=== PATIENT | female | born 1965 | race Caucasian/White ===

== ENCOUNTER 2024-07-27 12:55 | Day surgery (SDC) | payer BC ==
[2024-07-27] MEDS ORDERED: LIDOCAINE HCL 1% AMPUL 5 ML IJ ONE (12:56)
[2024-07-27] MEDS ORDERED: Decadron 4 MG INJ IV ONE (12:56)
[2024-07-27] MEDS ORDERED: Sodium Chloride 0.9(Preservative Free) 10 ML IJ ONE (12:56)
[2024-07-27] MEDS ORDERED: DIPRIVAN 200 MG/20 ML IV ONE (14:47)
--- NOTE | 2024-07-27 16:31 | XRAY ---
Indication: Left L5-S2 transforaminal DELFIN. Intraoperative fluoroscopy provided for 51 seconds. 6 digital spot images submitted for interpretation demonstrates posterior needle tips projecting over the expected left L5 and S1 nerve roots. Small amount of contrast injected for needle tip placement. Correlate with intraoperative findings/report.
--- NOTE | 2024-07-27 16:31 | XRAY ---
Indication: Left piriformis injection. Intraoperative fluoroscopy provided for 6 seconds. Single digital spot image submitted for interpretation demonstrates posterior needle tip projecting over left piriformis. Small amount of contrast injected for needle tip placement. Correlate with intraoperative findings/report.
--- NOTE | 2024-07-27 16:55 | XRAY ---
51 seconds of fluoroscopy was used in surgery for a left L5-S2 transforaminal DELFIN.
--- NOTE | 2024-07-27 16:56 | XRAY ---
6 seconds of fluoroscopy was used in surgery for a left piriformis injection.
== END 2024-07-27 15:40 | disposition home or self-care (01) ==
LOC: SDC-PAIN 12:55
PROVIDERS: ATTEND Psychiatry & Neurology Pain Medicine
DX: M79.18 Myalgia, other site (principal); M54.16 Radiculopathy, lumbar region
CPT/HCPCS: 20552; 64483; 64484; 72100; 72170; 77002; 77003; J1100; J2704; Q9966